=== PATIENT | male | born 1955 | race Two or more races ===

== ENCOUNTER 2019-05-30 05:25 | Day surgery (SDC) | payer OTHER ==
[~2019-05-30 05:25] MED LIST: LOSARTAN-HCTZ1 EAC2 PO; OMEPRAZO PO; TAMS0.4C PO; TOPROL XL25 M1 PO; TROMBONEX CAPS1 EACH PO; ZOCOR20 MG PO
== END 2019-05-30 11:30 | disposition home or self-care (01) ==
LOC: CIR.AMB 05:25
DX: D17.21 Benign lipomatous neoplasm of skin and subcutaneous tissue of right arm (principal)